=== PATIENT | male | born 1985 ===

== ENCOUNTER 2020-01-09 19:50 | Emergency (ER) | payer MEDICAID ==
[~2020-01-09] VITALS: Ht 167.6 cm; Wt 79.8 kg
[2020-01-09 19:59] VITALS: BP 125/93
--- NOTE | 2020-01-09 20:16 | NUR ---
CALLED TERRI[facility] SO, PATIENT HAD CALLED EARLIER IN DAY RECIEVED INCIDENT REPORT FROM DISPATCH IT IS [id number]
== END 2020-01-09 22:22 | disposition left against medical advice (07) ==
LOC: ER 19:54
DX: S09.90XA Unspecified injury of head, initial encounter (principal); Z53.21 Procedure and treatment not carried out due to patient leaving prior to being seen by health care provider; Y04.0XXA Assault by unarmed brawl or fight, initial encounter; Y93.89 Activity, other specified; Y92.89 Other specified places as the place of occurrence of the external cause; Y99.9 Unspecified external cause status